=== PATIENT | female | born 1960 | race Caucasian/White ===

== ENCOUNTER 2021-05-22 10:56 | Emergency (ER) | payer OTHER ==
[~2021-05-22] VITALS: Ht 157.5 cm; Wt 90.9 kg
[2021-05-22] MEDS ORDERED: HYDROGEN PEROXIDE 118 ML SOLUTION TP ONE (11:45)
[2021-05-22] MEDS ORDERED: PERTUSS(ACELL),DIPH,TET VAC/PF 0.5 ML SYRINGE IM. ONE (11:45)
[2021-05-22] MEDS ORDERED: IBUPROFEN 400 MG TABLET PO ONE (11:45)
[2021-05-22] MEDS ORDERED: BACITRACIN 0.9 GM PACKET OINTMENT TP ONE (11:45)
[2021-05-22 12:58] VITALS: BP 150/96
== END 2021-05-22 13:12 | disposition home or self-care (01) ==
LOC: EMS 11:06
DX: S91.331A Puncture wound without foreign body, right foot, initial encounter (principal); E11.9 Type 2 diabetes mellitus without complications; Z88.8 Allergy status to other drugs, medicaments and biological substances; W22.8XXA Striking against or struck by other objects, initial encounter; Y93.89 Activity, other specified; Y92.89 Other specified places as the place of occurrence of the external cause; Y99.8 Other external cause status
CPT/HCPCS: 82962; 90471; 90715; 99284